=== PATIENT | female | born 1965 | race Two or more races ===

== ENCOUNTER 2021-03-20 09:45 | Inpatient (IN) | payer OTHER ==
[~2021-03-20] VITALS: Ht 167.6 cm; Wt 65.8 kg
[2021-03-20] MEDS ORDERED: MAXIMUM ENERGY1 EACH PO (10:24)
[2021-03-20] MEDS ORDERED: SINGULAIR10 MG PO (10:24)
[2021-03-20] MEDS ORDERED: SYNTHROID88 MCG PO (10:24)
[2021-03-20] MEDS ORDERED: GABAPENTIN400 MG PO (10:24)
== END 2021-03-28 11:49 | disposition home or self-care (01) | DRG 330 ==
LOC: SURG 03-26 05:13 → O/R 03-26 05:13 → SURH 03-26 09:45 → SURG 03-27 14:09
PROVIDERS: ADMIT Colon & Rectal Surgery; ATTEND Colon & Rectal Surgery
PROC: 0DTN4ZZ Resection of Sigmoid Colon, Percutaneous Endoscopic Approach (ICD-10-PCS; 2021-03-26)
PROC: 0DJD8ZZ Inspection of Lower Intestinal Tract, Via Natural or Artificial Opening Endoscopic (ICD-10-PCS; 2021-03-26)
PROC: 3E0F7SF Introduction of Other Gas into Respiratory Tract, Via Natural or Artificial Opening (ICD-10-PCS; 2021-03-26)
PROC: 0DTP4ZZ Resection of Rectum, Percutaneous Endoscopic Approach (ICD-10-PCS; principal; 2021-03-26 19:15)
DX: K57.32 Diverticulitis of large intestine without perforation or abscess without bleeding (principal); K92.1 Melena; Z20.822 Contact with and (suspected) exposure to COVID-19